=== PATIENT | female | born 1990 | race Two or more races ===

== ENCOUNTER 2020-06-01 02:47 | Emergency (ER) | payer SELFPAY ==
[~2020-06-01] VITALS: Ht 160 cm; Wt 59.1 kg
[2020-06-01 02:51] VITALS: BP 108/53
== END 2020-06-01 03:43 | disposition left against medical advice (07) ==
LOC: EMS 02:47
DX: R07.89 Other chest pain (principal); Z53.21 Procedure and treatment not carried out due to patient leaving prior to being seen by health care provider